=== PATIENT | male | born 1980 | race Caucasian/White ===

== ENCOUNTER 2017-04-21 19:18 | Emergency (ER) | payer BC ==
[~2017-04-21] VITALS: Ht 190.5 cm; Wt 97.5 kg
[2017-04-21] MEDS ORDERED: KETOROLAC 30 MG/ML VIAL IVP ONE (20:00)
--- NOTE | 2017-04-21 20:02 | ED Back Pain ---
General Chief Complaint: Back Problems Stated Complaint: BACK AND UPPER ABD PAIN Nursing Triage Note: INTERMITTANT LEFT FLANK PAIN RADIATING TO UPPER ABDOMEN TONIGHT Nursing Sepsis Screen: No Definite Risk Source of Information: Patient Exam Limitations: No Limitations History of Present Illness Date Seen by Provider: Apr 21, 2017 Time Seen by Provider: 20:00 Initial Comments ER with reports of intermittent left thoracic back pain and left upper abdominal pain. states that he's had a cough for quite some time. He did receive Decadron and amoxicillin for some sort of respiratory illness about 2 weeks ago. He cannot identify any factors that improve or worsen his abdominal pain/back pain. He initially thought this may be muscular from weight lifting that the pain failed to improve with the typical remedies such as rest, heat and anti-inflammatories. He does not have shortness of breath. He does not have a fever. Deep breathing does not worsen his pain. Location: T-Spine Timing/Duration: Intermittent Severity: Moderate Method of Injury: Unknown Associated Symptoms: No fever, No numbness in legs/feet, No tingling in legs/ feet, No sensory/motor loss, No lower back pain Allergies and Home Medications Allergies Coded Allergies: No Known Drug Allergies (Unverified , 04/21/17) Home Medications Cefuroxime Axetil 250 Mg Tablet, 250 MG PO BID Prescribed by: JARED WEBBER on 04/21/172052 Constitutional: see HPI, No chills, No fever EENTM: see HPI Respiratory: see HPI, cough Cardiovascular: no symptoms reported Genitourinary: no symptoms reported Musculoskeletal: no symptoms reported Skin: no symptoms reported Psychiatric/Neurological: No Symptoms Reported Past Lmnsufn-Rajaku-Vhgofo Hx Patient Social History Alcohol Use: Denies Use Recreational Drug Use: No Smoking Status: Never a Smoker 2nd Hand Smoke Exposure: No Recent Foreign Travel: No Contact w/Someone Who Travel: No Recent Infectious Disease Expo: No Recent Hopitalizations: No Immunizations Up To Date Tetanus Booster (TDap): Unknown PED Vaccines UTD: Yes Seasonal Allergies Seasonal Allergies: No Surgeries History of Surgeries: Yes (COCHLEAR IMPLANT) Respiratory History of Respiratory Disorde: No Cardiovascular History of Cardiac Disorders: No Neurological History of Neurological Disord: No Genitourinary History of Genitourinary Disor: No Gastrointestinal History of Gastrointestinal Di: No Musculoskeletal History of Musculoskeletal Dis: No Endocrine History of Endocrine Disorders: No HEENT History of HEENT Disorders: No Cancer History of Cancer: No Psychosocial History of Psychiatric Problem: No Integumentary History of Skin or Integumenta: No Blood Transfusions History of Blood Disorders: No Physical Exam Vital Signs Vital Signs - First Documented 04/21/17 19:51 Temp 97.4 Pulse 79 Resp 16 B/P (MAP) 137/96 (110) Pulse Ox 96 O2 Delivery Room Air Capillary Refill : Less Than 3 Seconds General Appearance: No Apparent Distress, WD/WN HEENT: PERRL/EOMI, TMs Normal Neck: Full Range of Motion, Normal Inspection Cardiovascular: Regular Rate, Rhythm, Normal Peripheral Pulses Respiratory: Chest Non Tender, Lungs Clear, Normal Breath Sounds, No Accessory Muscle Use, No Respiratory Distress Gastrointestinal: Normal Bowel Sounds, Non Tender, Soft Extremity: Normal Capillary Refill, Normal Inspection Neurologic/Psychiatric: Alert, Oriented x3, No Motor/Sensory Deficits Skin: Normal Color, Warm/Dry Comments The areas of pain are nontender to palpation Progress/Results/Core Measures Results/Orders Lab Results Laboratory Tests Test 04/21/17 20:00 Range/Units White Blood Count 8.9 4.3-11.0 10^3/uL Red Blood Count 4.70 4.35-5.85 10^6/uL Hemoglobin 14.6 13.3-17.7 G/DL Hematocrit 42 40-54 % Mean Corpuscular Volume 90 80-99 FL Mean Corpuscular Hemoglobin 31 25-34 PG Mean Corpuscular Hemoglobin Concent 35 32-36 G/DL Red Cell Distribution Width 12.5 10.0-14.5 % Platelet Count 311 130-400 10^3/uL Mean Platelet Volume 9.5 7.4-10.4 FL Neutrophils (%) (Auto) 43 42-75 % Lymphocytes (%) (Auto) 41 12-44 % Monocytes (%) (Auto) 11 0-12 % Eosinophils (%) (Auto) 4 0-10 % Basophils (%) (Auto) 0 0-10 % Neutrophils # (Auto) 3.9 1.8-7.8 X 10^3 Lymphocytes # (Auto) 3.7 1.0-4.0 X 10^3 Monocytes # (Auto) 1.0 0.0-1.0 X 10^3 Eosinophils # (Auto) 0.4 H 0.0-0.3 10^3/uL Basophils # (Auto) 0.0 0.0-0.1 10^3/uL Urine Color YELLOW Urine Clarity CLEAR Urine pH 6.5 5-9 Urine Specific Phillips 1.020 1.016-1.022 Urine Protein 1+ H NEGATIVE Urine Glucose (UA) NEGATIVE NEGATIVE Urine Ketones NEGATIVE NEGATIVE Urine Nitrite NEGATIVE NEGATIVE Urine Bilirubin NEGATIVE NEGATIVE Urine Urobilinogen 1 NORMAL MG/DL Urine Leukocyte Esterase 1+ H NEGATIVE Urine RBC (Auto) NEGATIVE NEGATIVE Urine RBC 0-2 /HPF Urine WBC 10-25 H /HPF Urine Squamous Epithelial Cells 0-2 /HPF Urine Crystals NONE /LPF Urine Bacteria TRACE /HPF Urine Casts NONE /LPF Urine Mucus SMALL H /LPF Urine Culture Indicated YES Sodium Level 144 135-145 MMOL/L Potassium Level 4.4 3.6-5.0 MMOL/L Chloride Level 109 H 98-107 MMOL/L Carbon Dioxide Level 26 21-32 MMOL/L Anion Gap 9 5-14 MMOL/L Blood Urea Nitrogen 28 H 7-18 MG/DL Creatinine 1.40 H 0.60-1.30 MG/DL Estimat Glomerular Filtration Rate 57 BUN/Creatinine Ratio 20 Glucose Level 88 70-105 MG/DL Calcium Level 9.6 8.5-10.1 MG/DL Total Bilirubin 0.5 0.1-1.0 MG/DL Aspartate Amino Transf (AST/SGOT) 20 5-34 U/L Alanine Aminotransferase (ALT/SGPT) 23 0-55 U/L Alkaline Phosphatase 89 40-136 U/L Total Protein 7.4 6.4-8.2 GM/DL Albumin 4.3 3.2-4.5 GM/DL Lipase 68 8-78 U/L My Orders Orders - JARED WEBBER APRN Cbc With Automated Diff (04/21/17 19:51) Comprehensive Metabolic Panel (04/21/17 19:51) Ua Culture If Indicated (04/21/17 19:51) Lipase (04/21/17 19:51) Saline Lock/Iv-Start (04/21/17 19:51) Ketorolac Injection (Toradol Injection) (04/21/17 20:00) Chest Pa/Lat (2 View) (04/21/17 19:58) Urine Culture (04/21/17 20:00) Ct Abd/Pelvis Wo(Kidney Stone) (04/21/17 20:20) Ceftriaxone Injection (Rocephin Injectio (04/21/17 20:30) Ns Iv 1000 Ml (Sodium Chloride 0.9%) (04/21/17 20:45) Medications Given in ED Current Medications Medications Dose Ordered Sig/Ashlie Route Start Time Stop Time Status Last Admin Dose Admin Ceftriaxone Sodium 1000 mg/ Sodium Chloride 50 ml @ 100 mls/hr ONCE ONCE IV 04/21/17 20:30 04/21/17 20:59 DC 04/21/17 20:46 100 MLS/HR Ketorolac Tromethamine 15 mg ONCE ONCE IVP 04/21/17 20:00 04/21/17 20:01 DC 04/21/17 20:05 15 MG Vital Signs/I&O Vital Sign - Last 12Hours 04/21/17 04/21/17 19:51 20:05 Temp 97.4 97.4 Pulse 79 Resp 16 B/P (MAP) 137/96 (110) Pulse Ox 96 O2 Delivery Room Air Blood Pressure Mean: 110 Diagnostic Imaging Diagonstic Imaging: Xray Plain Films/CT/US/NM/MRI: chest Comments NAME: GALINA RAMIRES MED REC#: [id number] PT STATUS: REG ER : 1980 PHYSICIAN: JARED WEBBER APRN ADMIT DATE: 04/21/17/ER Draft Date of Exam:04/21/17 CHEST PA/LAT (2 VIEW) EXAMINATION: CHEST (PA AND LATERAL) CLINICAL INDICATION: 36-year-old male, chest pain. COMPARISON: None. FINDINGS: Heart size and mediastinal contours are unremarkable. There is no identified pneumothorax. There is no pleural effusion. There is a normal variant azygous lobe. There is no identified focal airspace consolidation. IMPRESSION: No identified acute cardiopulmonary abnormality. Dictated on workstation # [id number] Dict: 04/21/172011 Trans: 04/21/172013 SHAAN [id number] Interpreted by: BILL COOPER MD Electronically signed by: NAME: GALINA RAMIRES MED REC#: [id number] PT STATUS: REG ER : 1980 PHYSICIAN: JARED WEBBER APRN ADMIT DATE: 04/21/17/ER Draft Date of Exam:04/21/17 CT ABD/PELVIS WO(KIDNEY STONE) PROCEDURE: CT urinary tract, rule out kidney stone. TECHNIQUE: Multiple contiguous axial images were obtained through the abdomen and pelvis without the use of intravenous contrast. DATE: 04/21/2017. COMPARISON: None. INDICATION: 36-year-old male, left flank and posterior abdominal pain. FINDINGS: There are limitations for evaluation of the abdominal organs, neoplastic processes, abscess, and limited evaluation of the vasculature relating to the lack of intravenous contrast. The visualized portions of the lung bases are clear. The heart is not enlarged. There is no identified pericardial effusion. The liver is normal in size and contour. The gallbladder is contracted. There is no intrahepatic or extrahepatic bile duct dilation. The main pancreatic duct is not abnormally dilated. Limited noncontrast evaluation of the pancreatic parenchyma is unremarkable. The spleen is not enlarged. The adrenal glands are unremarkable. Unremarkable appearance of the renal parenchyma. The urinary collecting systems are not distended. There is no identified renal or ureteral stone. The urinary bladder is grossly unremarkable in appearance. The intestinal tract is not distended. The appendix is well-seen on axial image 131 and adjacent sequential images. There is no evidence of acute appendicitis. There is no free intraperitoneal air. There is no drainable fluid collection. There is no free pelvic fluid. There are atherosclerotic calcifications noted. There is no identified abnormally enlarged lymph node within the abdomen or pelvis which meets CT size criteria for adenopathy. There is no identified acute bony abnormality. IMPRESSION: CT ABDOMEN AND PELVIS. 1. No identified acute abnormality within the abdomen or pelvis. 2. Atherosclerotic calcifications noted. Dictated on workstation # [id number] Dict: 04/21/172034 Trans: 04/21/172047 SHAAN [id number] Interpreted by: BILL COOPER MD Electronically signed by: Departure Communication (Admissions) Progress Notes 2104- there is no edema to suggest nephrotic syndrome, no hematuria. He states he's never had labs drawn as far as he can recall so is not sure what his baseline kidney function is. He has no known kidney disorders. I did advise him to follow up with Dr. Yadav within 2-3 days for recheck of kidney function and urinalysis. He is receiving 1 L of normal saline in the emergency room, 1 g of Rocephin. 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 Decision time for Depature: 20:50 Referrals: KIMBERLY YADAV MD (PCP/Family) Primary Care Physician Patient Instructions: Urinary Tract Infection, Adult (DC) Add. Discharge Instructions: 1. Your urine has white blood cells in it and leukocyte esterase which most often indicates infection. However, you also had some protein in her urine and your BUN/creatinine or markers of kidney function were slightly elevated. This should be rechecked in 48-72 hours so you should call Dr. Yadav tomorrow morning to make an appointment to be seen within 1-3 days for recheck. Take antibiotics as directed and return to the emergency room for any worsening symptoms. Scripts Cefuroxime Axetil (Cefuroxime) 250 Mg Tablet 250 MG PO BID, #10 TAB Prov: JARED WEBBER APRN 04/21/17 Images Torso/Trunk 1 - 1 - Copy Copies To 1: KALYANI FITZGERALD MD; KIMBERLY YADAV MD, PETER J APRN Apr 21, 2017 20:02
[2017-04-21 20:10] LABS: BASOPHILS % (AUTO) 0 % (0-10); EOSINOPHILS # (AUTO) 0.4 10^3/uL (0.0-0.3); EOSINOPHILS % (AUTO) 4 % (0-10); HEMATOCRIT 42 % (40-54); HEMOGLOBIN 14.6 G/DL (13.3-17.7); LYMPHOCYTES # (AUTO) 3.7 X 10^3 (1.0-4.0); LYMPHOCYTES % (AUTO) 41 % (12-44); MEAN CORPUSCULAR HEMOGLOBIN 31 PG (25-34); MEAN CORPUSCULAR HGB CONC 35 G/DL (32-36); MEAN CORPUSCULAR VOLUME 90 FL (80-99); MEAN PLATELET VOLUME 9.5 FL (7.4-10.4); MONOCYTES % (AUTO) 11 % (0-12); NEUTROPHILS # (AUTO) 3.9 X 10^3 (1.8-7.8); NEUTROPHILS % (AUTO) 43 % (42-75); PLATELET COUNT 311 10^3/uL (130-400); RED CELL DISTRIBUTION WIDTH 12.5 % (10.0-14.5); WHITE BLOOD COUNT 8.9 10^3/uL (4.3-11.0)
[2017-04-21 20:11] LABS: BILIRUBIN,URINE NEGATIVE (NEGATIVE); CLARITY,URINE CLEAR; COLOR,URINE YELLOW; GLUCOSE, URINE (UA) NEGATIVE (NEGATIVE); KETONES,URINE NEGATIVE (NEGATIVE); LEUKOCYTE ESTERASE ,URINE 1+ (NEGATIVE); NITRITE,URINE NEGATIVE (NEGATIVE); PH,URINE 6.5 (5-9); PROTEIN,URINE 1+ (NEGATIVE); UROBILINOGEN,URINE 1 MG/DL (NORMAL)
--- NOTE | 2017-04-21 20:15 | Diagnostic Imaging Report ---
EXAMINATION: CHEST (PA AND LATERAL) CLINICAL INDICATION: 36-year-old male, chest pain. COMPARISON: None. FINDINGS: Heart size and mediastinal contours are unremarkable. There is no identified pneumothorax. There is no pleural effusion. There is a normal variant azygous lobe. There is no identified focal airspace consolidation. IMPRESSION: No identified acute cardiopulmonary abnormality. Dictated by: Dictated on workstation # [id number]
[2017-04-21 20:19] LABS: BACTERIA,URINE TRACE /HPF; RBC,URINE 0-2 /HPF; SQUAMOUS EPITHELIAL CELL,UR 0-2 /HPF
[2017-04-21] MEDS ORDERED: cefTRIAXone INJECTION 1,000 MG in NS (IVPB) 50 ML IV ONE (20:30)
[2017-04-21 20:37] LABS: ALBUMIN 4.3 GM/DL (3.2-4.5); BILIRUBIN,TOTAL 0.5 MG/DL (0.1-1.0); CALCIUM 9.6 MG/DL (8.5-10.1); CREATININE SERUM 1.4 MG/DL (0.60-1.30); POTASSIUM 4.4 MMOL/L (3.6-5.0); TOTAL PROTEIN 7.4 GM/DL (6.4-8.2)
[2017-04-21] MEDS ORDERED: NS IV 1000 ML 1,000 ML IV SCH (20:45)
--- NOTE | 2017-04-21 20:48 | Diagnostic Imaging Report ---
PROCEDURE: CT urinary tract, rule out kidney stone. TECHNIQUE: Multiple contiguous axial images were obtained through the abdomen and pelvis without the use of intravenous contrast. DATE: 04/21/2017. COMPARISON: None. INDICATION: 36-year-old male, left flank and posterior abdominal pain. FINDINGS: There are limitations for evaluation of the abdominal organs, neoplastic processes, abscess, and limited evaluation of the vasculature relating to the lack of intravenous contrast. The visualized portions of the lung bases are clear. The heart is not enlarged. There is no identified pericardial effusion. The liver is normal in size and contour. The gallbladder is contracted. There is no intrahepatic or extrahepatic bile duct dilation. The main pancreatic duct is not abnormally dilated. Limited noncontrast evaluation of the pancreatic parenchyma is unremarkable. The spleen is not enlarged. The adrenal glands are unremarkable. Unremarkable appearance of the renal parenchyma. The urinary collecting systems are not distended. There is no identified renal or ureteral stone. The urinary bladder is grossly unremarkable in appearance. The intestinal tract is not distended. The appendix is well-seen on axial image 131 and adjacent sequential images. There is no evidence of acute appendicitis. There is no free intraperitoneal air. There is no drainable fluid collection. There is no free pelvic fluid. There are atherosclerotic calcifications noted. There is no identified abnormally enlarged lymph node within the abdomen or pelvis which meets CT size criteria for adenopathy. There is no identified acute bony abnormality. IMPRESSION: CT ABDOMEN AND PELVIS. 1. No identified acute abnormality within the abdomen or pelvis. 2. Atherosclerotic calcifications noted. Dictated by: Dictated on workstation # [id number]
[2017-04-21] MEDS ORDERED: CEFU250T80 PO (20:53)
[2017-04-21 21:57] VITALS: BP 139/98
== END 2017-04-21 21:56 | disposition home or self-care (01) ==
LOC: EDUNIT# 19:18 → ER 19:20
DX: N39.0 Urinary tract infection, site not specified (principal); N28.9 Disorder of kidney and ureter, unspecified; Z96.21 Cochlear implant status
CPT/HCPCS: 36415; 71046; 74176; 80053; 81000; 83690; 85025; 87088

== ENCOUNTER → 2021-01-12 | Outpatient (CLI) | payer BC, OTHER ==
[~2021-01-12] MED LIST: CEFU250T80 PO
--- NOTE | 2021-01-12 15:39 | Diagnostic Imaging Report ---
INDICATION: Back pain COMPARISON: None FINDINGS: Frontal and lateral views of the thoracic spine were obtained. Visualization of the upper thoracic spine is limited on the lateral projection. Alignment and vertebral heights are maintained. There is no fracture or destructive process. There are no large paraspinal masses. Limited views of the lungs are clear. IMPRESSION: 1. No acute fracture or dislocation of the thoracic spine. Dictated by: Dictated on workstation # [id number]
== END ==
LOC: RAD 14:54
PROVIDERS: ATTEND Family Medicine
DX: M41.9 Scoliosis, unspecified (principal)
CPT/HCPCS: 72072